=== PATIENT | female | born 1980 | race Caucasian/White ===

== ENCOUNTER 2016-07-29 12:48 | Emergency (ER) | payer BC ==
--- NOTE | ~2016-07-29 | EKG ---
PATIENT: JASWANT WHITE UNIT #: [id number] Ventricular Rate: 93 BPM Atrial Rate: 93 BPM P-R Interval: 144 ms QRS Duration: 88 ms Q-T Interval: 368 ms QTC Calculation(Bezet): 457 ms P [place]: 37 degrees Calculated R [place]: 33 degrees Calculated T [place]: 30 degrees Diagnosis Line: Normal sinus rhythm Diagnosis Line: Normal ECG Diagnosis Line: When compared with ECG of 04-JAN-2011 18:09, Diagnosis Line: Vent. rate has increased BY 31 BPM Diagnosis Line: Confirmed by CORAZON LOCKWOOD MD ([id number]) on Diagnosis Line: 07/31/2016 12:03:39 AM INTERPRETING MD: MANDIE PURDY
--- NOTE | ~2016-07-29 | CT16 ---
[facility] A Service of [facility] RADIOLOGY TEXT RESULTS PATIENT: JASWANT WHITE LOCATION: [facility] : 78 UNIT #: [id number] AGE: [address]: Alberto Houston MD SEX: F ORDER DR: [id number] [facility] [address] [place], [place] [address] [id number] E MR#: [id number] Acc #: [id number] NAME: JASWANT WHITE : 1980 SEX: F STUDY DATE/TIME: 07/29/2016 16:31 UNIT: [facility] ROOM: STUDY DESCRIPTION: CT Angio Chest for PE Attending Physician: Brad Houston M.D. Ordering Physician: Ed Clive Rodriguez M.D. Primary Care Physician: Drew Crouch M.D. MEDICAL IMAGING REPORT This report is preliminary unless electronic signature is present EXAM CTA chest PE protocol. INDICATIONS Chest pain and difficulty breathing. Shortness of air since this morning. PROCEDURE Contrast-enhanced CTA of the chest, attention opacification pulmonary arteries. Coronal 3-D MIP sagittal reformatted images reconstructed and submitted. 80 mL of Isovue-370. This CT exam was performed with one or more of the following radiation dose reduction techniques: automatic exposure control, adjustment of mA and/or kV according to patient size, and iterative reconstruction. COMPARISON None. FINDINGS No evidence for pulmonary embolus or acute aortic injury. No adenopathy. No acute findings in the included upper abdomen. Lungs are clear. No aggressive appearing bone lesion. IMPRESSION No acute findings in the chest. No evidence for pulmonary embolus. Dictated by... Brad Veras M.D. THIS IS AN ELECTRONICALLY VERIFIED REPORT Brad Veras M.D. at 08/01/2016 7:01 AM EED/gz [facility] A Service of [facility] RADIOLOGY TEXT RESULTS PATIENT: JASWANT WHITE LOCATION: [facility] : 78 UNIT #: [id number] AGE: [address]: Alberto Houston MD SEX: F ORDER DR: TD: 07/30/2016 08:27 JOB #: [id number] MEDICAL IMAGING REPORT COPY
--- NOTE | ~2016-07-29 | CR72 ---
[facility] A Service of [facility] RADIOLOGY TEXT RESULTS PATIENT: JASWANT WHITE LOCATION: [facility] : 78 UNIT #: [id number] AGE: [address]: Alberto Houston MD SEX: F ORDER DR: [id number] [facility] [address] [place], [place] [address] [id number] E MR#: [id number] Acc #: [id number] NAME: JASWANT WHITE : 1980 SEX: F STUDY DATE/TIME: 07/29/2016 12:32 UNIT: [facility] ROOM: STUDY DESCRIPTION: CR Chest Single View Portable Attending Physician: Brad Houston M.D. Ordering Physician: Ed Clive Rodriguez M.D. Primary Care Physician: Drew Crouch M.D. MEDICAL IMAGING REPORT This report is preliminary unless electronic signature is present EXAM Portable chest. HISTORY Shortness of air. Heart jittery beginning this morning. COMPARISON 07/15/2014. FINDINGS Portable view of the chest was obtained. The heart size and vascularity are normal. The lungs are clear. The bones are unremarkable. IMPRESSION No active disease. Dictated by... Stephon Saini M.D. THIS IS AN ELECTRONICALLY VERIFIED REPORT Stephon Saini M.D. at 07/30/2016 3:07 PM FEL/gz TD: 07/30/2016 06:20 JOB #: [id number] MEDICAL IMAGING REPORT COPY
[2016-07-29 12:40] LABS: BASOPHIL# 0.1 X10e3 (0-0.3); BASOPHIL% 0.6 % (0-2.5); EOSINOPHIL# 0.3 X10e3 (0-0.7); EOSINOPHIL% 2.6 % (0.0-7.0); HEMATOCRIT 43.5 % (35.0-45.0); LYMPHOCYTE# 2.5 X10e3 (1.0-3.5); LYMPHOCYTE% 20.8 % (17.0-45.0); MEAN CELL VOLUME 94.5 FL (83-96); MEAN CORPUSCULAR HEMOGLOBIN 32.5 PG (28-34); MEAN CORPUSCULAR HGB CONC 34.4 g/dL (30-36); MEAN PLATELET VOLUME 8.5 FL (6.5-11.5); MONOCYTE# 0.6 X10e3 (0-1.0); MONOCYTE% 4.5 % (3.0-12.0); NEUTROPHIL# 8.7 X10e3 (1.5-7.1); NEUTROPHIL% 71.5 % (40-75); PLATELET COUNT 368 X10e3 (140-420); RED BLOOD COUNT 4.61 X10e (3.90-5.30); RED CELL DISTRIBUTION WIDTH 13.2 % (11.0-15.5); WHITE BLOOD COUNT 12.2 X10e3 (4.0-10.5)
[2016-07-29 12:42] LABS: DIFF IND NO
[~2016-07-29 12:48] MED LIST: AMOXICILLIN875 MG PO; ANTIVERT PO; BENZONATATE PO; BIPOLAR MED; CENTRUM PO; CIPRO250 MG PO; CLONIDINE HCL0.1 MG PO; CRESTOR PO; CYMBALTA PO; FLEXERIL PO; FLEXERIL10 MG; FLEXERIL10 MG PO; FLOMAX0.4 M1 PO; GABAPENTIN300 MG PO; IBUPROFEN800 MG PO; IMITREX50 MG PO; K-DUR20 ME1 DOB; KLONOPIN1 MG PO; LEVAQUIN250 MG DOB; LINZESS290 MCG PO; LORTAB 101 TAB 10/5 DOB; LUNESTA2 MG; LYRICA PO; MEDROL DOSEPAK4 MG PO; MENTAX TOP; METHOTREXATE2.5 MG IM; MIRALAX17 GM PO; MOBIC PO; MORPHINE IR PO; MS CONTIN60 MG PO; NAPROXEN PO; NEURONTIN PO; NO MEDICATIONS; NORFLEX100 M1 PO; PHENERGAN PO; PHENERGAN25 MG PO; PROPRANOLOL HCL10 M1 PO; SEROQUEL50 M1 PO; SKELAXIN PO; SYNTHROID137 MCG PO; TRILEPTAL300 MG; TYLENOL #3 PO; TYLOX1 CAP 5/50 PO; VICODIN 5/1 TAB 5/50 PO; ZOFRAN ODT4 MG PO; ZOFRAN PO
[2016-07-29 12:51] LABS: POC - CKMB <1.0 ng/mL (0.0-7.9); POC - TROPONIN <0.05 ng/mL (<=0.05)
[2016-07-29 12:55] LABS: PARTIAL THROMBOPLASTIN TIME 27.7 SECONDS (23.5-31.3); PROTHROMBIN TIME (PATIENT) 10.4 SECONDS (9.6-11.5)
[2016-07-29 13:18] LABS: ALBUMIN SERUM 4.1 g/dL (3.5-5.0); ALKALINE PHOSPHATASE 66 U/L (32-92); ALT (SGPT) 12 U/L (10-40); AST (SGOT) 20 U/L (10-42); BILIRUBIN, DIRECT 0.1 mg/dL (0.0-0.2); BILIRUBIN,INDIRECT 0.6 mg/dL (0.0-0.9); BILIRUBIN,TOTAL 0.7 mg/dL (0.2-2.0); BLOOD UREA NITROGEN 10 mg/dL (9-23); CALCIUM SERUM 9.9 mg/dL (8.4-10.2); CARBON DIOXIDE 22 mmol/L (22-31); CHLORIDE 108 mmol/L (100-111); GLOM FILT RATE Estimated ABOVE60 mL/min (>60); GLUCOSE FASTING 130 mg/dL (70-110); POTASSIUM 3.7 mmol/L (3.5-5.1); PROTEIN TOTAL SERUM 7.5 g/dL (6.0-8.3); SODIUM 135 mmol/L (135-145)
[2016-07-29 13:41] LABS: INFLUENZA A NEG (NEG)
[2016-07-29 13:42] LABS: INFLUENZA B NEG (NEG)
== END 2016-07-29 18:15 | disposition home or self-care (01) ==
LOC: CED 12:48
PROVIDERS: Emergency Medicine
DX: R06.00 Dyspnea, unspecified (principal); F17.210 Nicotine dependence, cigarettes, uncomplicated
CPT/HCPCS: 36415; 71010; 71275; 80048; 80076; 82553; 84484; 84703; 85025; 85610; 85730; 87804; 93005; 96360; 99284; Q9967

== ENCOUNTER 2016-08-26 19:06 | Emergency (ER) | payer BC ==
--- NOTE | ~2016-08-26 | CR72 ---
[facility] A Service of [facility] RADIOLOGY TEXT RESULTS PATIENT: JASWANT WHITE LOCATION: [facility] : 78 UNIT #: [id number] AGE: [address]: Eliezer Byrne MD SEX: F ORDER DR: [id number] [facility] [address] [place], [place] [address] [id number] E MR#: [id number] Acc #: [id number] NAME: JASWANT WHITE : 1980 SEX: F STUDY DATE/TIME: 08/26/2016 19:03 UNIT: [facility] ROOM: STUDY DESCRIPTION: CR Chest Single View Portable Attending Physician: Eliezer Byrne M.D. Ordering Physician: Ed Clive Rodriguez M.D. Primary Care Physician: Drew Crouch M.D. MEDICAL IMAGING REPORT This report is preliminary unless electronic signature is present EXAM Portable chest. DATE OF EXAM 08/26/2016 HISTORY Cough, shortness of breath, chest congestion and fever for 2 weeks. FINDINGS A single AP portable view of the chest shows both lungs to be clear. The heart is normal in size. The mediastinal contour is normal. No significant bone abnormalities are seen. IMPRESSION Normal portable chest. Dictated by... Golden Fowler M.D. THIS IS AN ELECTRONICALLY VERIFIED REPORT Golden Fowler M.D. at 08/27/2016 1:14 PM CYNTHIA/raffy TD: 08/26/2016 23:03 JOB #: [id number] MEDICAL IMAGING REPORT Page 1 of 1 COPY
[2016-08-26 19:20] LABS: INFLUENZA A NEG (NEG); INFLUENZA B NEG (NEG)
== END 2016-08-26 20:35 | disposition home or self-care (01) ==
LOC: CED 19:06
PROVIDERS: Emergency Medicine
DX: J36 Peritonsillar abscess (principal); I10 Essential (primary) hypertension; F31.9 Bipolar disorder, unspecified; Z88.2 Allergy status to sulfonamides; Z91.040 Latex allergy status; F17.210 Nicotine dependence, cigarettes, uncomplicated
CPT/HCPCS: 71010; 87651; 87804; 99283